=== PATIENT | female | born 1990 | race Caucasian/White ===

== ENCOUNTER → 2017-10-04 | Outpatient (CLI) | payer OTHER ==
[~2017-10-04] MED LIST: IBUP800 PO
== END ==
LOC: LAB SHORT 12:21
DX: J02.9 Acute pharyngitis, unspecified (principal)
CPT/HCPCS: 87070

== ENCOUNTER → 2019-06-30 | Outpatient (CLI) | payer OTHER | END | disposition home or self-care (01) | LOC: LAB 08:45 → LAB SHORT 08:45 | DX: Z34.93 Encounter for supervision of normal pregnancy, unspecified, third trimester (principal) | CPT/HCPCS: 87081; 87653 ==

== ENCOUNTER 2019-07-30 06:00 | Inpatient (IN) | payer OTHER ==
[~2019-07-30] VITALS: Ht 162.6 cm; Wt 66.0 kg
[2019-07-30] MEDS ORDERED: IRON150C PO (06:14)
[2019-07-30] MEDS ORDERED: PRENATAL TABLE1 EAC2 PO (06:14)
[2019-07-30 06:51] LABS: BASOPHILS ABSOLUTE AUTO 0.03 K/mm3 (0.00-0.23); BASOPHILS PERCENT AUTO 0 % (0-2); EOSINOPHILS ABSOLUTE AUTO 0.08 K/mm3 (0.00-0.68); EOSINOPHILS PERCENT AUTO 1 % (0-6); Hematocrit 35.1 % (33.0-51.0); IMMATURE GRAN ABSOLUTE AUTO 0.02 K/mm3 (0.00-0.10); IMMATURE GRAN PERCENT AUTO 0 % (0-1); LYMPHOCYTES ABSOLUTE AUTO 1.86 K/mm3 (0.84-5.20); LYMPHOCYTES PERCENT AUTO 22 % (21-46); MONOCYTES ABSOLUTE AUTO 0.72 K/mm3 (0.16-1.47); MONOCYTES PERCENT AUTO 9 % (4-13); Mean Corpuscular HGB 31.7 pg (26.0-34.0); Mean Corpuscular HGB Conc 34.2 g/dL (31.5-36.5); Mean Corpuscular Volume 93 fL (80-100); Mean Platelet Volume 11.2 fL (9.1-12.4); NEUTROPHILS ABSOLUTE AUTO 5.77 K/mm3 (1.96-9.15); NEUTROPHILS PERCENT AUTO 68 % (41-73); Platelet Count 201 K/mm3 (150-400); RDW Coefficient Variation 12.9 % (11.7-14.2); RDW Standard Deviation 43.5 fL (35.1-46.3); Red Blood Cell Count 3.79 M/mm3 (3.80-5.20); White Blood Cell Count 8.48 K/mm3 (4.00-11.30)
[2019-07-31 06:53] LABS: Hematocrit 30.7 % (33.0-51.0); Hemoglobin 10.3 g/dL (11.5-16.0); Mean Corpuscular HGB 31.9 pg (26.0-34.0); Mean Corpuscular HGB Conc 33.6 g/dL (31.5-36.5); Mean Corpuscular Volume 95 fL (80-100); Mean Platelet Volume 11.2 fL (9.1-12.4); Platelet Count 158 K/mm3 (150-400); RDW Standard Deviation 44.9 fL (35.1-46.3); Red Blood Cell Count 3.23 M/mm3 (3.80-5.20); White Blood Cell Count 10.31 K/mm3 (4.00-11.30)
[2019-07-31] MEDS ORDERED: IBUP800 PO (14:17)
--- NOTE | 2019-07-31 14:22 | NUR ---
DISCHARGE INSTRUCTIONS, WRITTEN AND VERBAL, GIVEN TO PT AND . ANSWERED ALL QUESTIONS AND CONCERNS. WRITTEN PRESCRIPTION HANDED TO PT. ALL PERSONAL BELONGINGS RETURNED. IV DISCONTINUED. FOLLOW UP APPOINTMENT SCHEDULED. PT IS DISCHARGED HOME.
[2019-08-01 08:07] LABS: HBSAG SCREEN Negative (Negative)
[2019-08-01 10:07] LABS: HIV SCREEN 4TH GENERATION WRFX Non Reactive (Non Reactive)
== END 2019-07-31 14:33 | disposition home or self-care (01) | DRG 807 ==
LOC: BC 06:00
PROVIDERS: ADMIT Obstetrics & Gynecology
PROC: 10E0XZZ Delivery of Products of Conception, External Approach (ICD-10-PCS; principal; 2019-07-30)
PROC: 10907ZC Drainage of Amniotic Fluid, Therapeutic from Products of Conception, Via Natural or Artificial Opening (ICD-10-PCS; 2019-07-30)
PROC: 3E033VJ Introduction of Other Hormone into Peripheral Vein, Percutaneous Approach (ICD-10-PCS; 2019-07-30)
PROC: 6A550ZT Pheresis of Cord Blood Stem Cells, Single (ICD-10-PCS; 2019-07-30)
PROC: 0HQ9XZZ Repair Perineum Skin, External Approach (ICD-10-PCS; 2019-07-30)
DX: O48.0 Post-term pregnancy (principal); Z37.0 Single live birth; O70.0 First degree perineal laceration during delivery; Z3A.40 40 weeks gestation of pregnancy
CPT/HCPCS: 36415; 85025; 85027; 86592; 86762; 86850; 86900; 86901; J1885; J2001; J2405; J2590; J3010; J7120

== ENCOUNTER → 2021-05-07 | Outpatient (CLI) | payer BC ==
[~2021-05-07] MED LIST changes: +IRON150C PO; +PRENATAL TABLE1 EAC2 PO
[2021-05-07 17:35] LABS: BASOPHILS ABSOLUTE AUTO 0.02 K/mm3 (0.00-0.23); BASOPHILS PERCENT AUTO 0 % (0-2); EOSINOPHILS ABSOLUTE AUTO 0.04 K/mm3 (0.00-0.68); EOSINOPHILS PERCENT AUTO 1 % (0-6); Hematocrit 32.5 % (33.0-51.0); IMMATURE GRAN ABSOLUTE AUTO 0.02 K/mm3 (0.00-0.10); IMMATURE GRAN PERCENT AUTO 0 % (0-1); LYMPHOCYTES PERCENT AUTO 16 % (21-46); MONOCYTES ABSOLUTE AUTO 0.35 K/mm3 (0.16-1.47); MONOCYTES PERCENT AUTO 5 % (4-13); Mean Corpuscular HGB 31.4 pg (26.0-34.0); Mean Corpuscular HGB Conc 33.8 g/dL (31.5-36.5); Mean Corpuscular Volume 93 fL (80-100); Mean Platelet Volume 10.5 fL (9.1-12.4); NEUTROPHILS ABSOLUTE AUTO 5.19 K/mm3 (1.96-9.15); NEUTROPHILS PERCENT AUTO 77 % (41-73); Platelet Count 213 K/mm3 (150-400); RDW Standard Deviation 44.1 fL (35.1-46.3); White Blood Cell Count 6.72 K/mm3 (4.00-11.30)
== END | disposition home or self-care (01) ==
LOC: LAB SHORT 14:19 → LAB 14:19
PROVIDERS: Obstetrics & Gynecology
DX: O09.93 Supervision of high risk pregnancy, unspecified, third trimester (principal)
CPT/HCPCS: 36415; 82950; 85025

== ENCOUNTER → 2021-07-10 | Outpatient (CLI) | payer OTHER | END | disposition home or self-care (01) | LOC: LAB 16:00 → LAB SHORT 16:00 | DX: O09.93 Supervision of high risk pregnancy, unspecified, third trimester (principal) | CPT/HCPCS: 87081; 87150 ==

== ENCOUNTER 2021-07-26 10:35 | Inpatient (IN) | payer OTHER ==
[~2021-07-26] VITALS: Ht 162.6 cm; Wt 61.4 kg
[2021-07-26 11:38] LABS: BASOPHILS ABSOLUTE AUTO 0.01 K/mm3 (0.00-0.23); BASOPHILS PERCENT AUTO 0 % (0-2); EOSINOPHILS ABSOLUTE AUTO 0.05 K/mm3 (0.00-0.68); EOSINOPHILS PERCENT AUTO 1 % (0-6); Hematocrit 33.8 % (33.0-51.0); Hemoglobin 11.7 g/dL (11.5-16.0); IMMATURE GRAN ABSOLUTE AUTO 0.03 K/mm3 (0.00-0.10); IMMATURE GRAN PERCENT AUTO 1 % (0-1); LYMPHOCYTES ABSOLUTE AUTO 1.07 K/mm3 (0.84-5.20); LYMPHOCYTES PERCENT AUTO 17 % (21-46); MONOCYTES ABSOLUTE AUTO 0.58 K/mm3 (0.16-1.47); MONOCYTES PERCENT AUTO 9 % (4-13); Mean Corpuscular HGB 31.7 pg (26.0-34.0); Mean Corpuscular HGB Conc 34.6 g/dL (31.5-36.5); Mean Corpuscular Volume 92 fL (80-100); Mean Platelet Volume 12.1 fL (9.1-12.4); NEUTROPHILS ABSOLUTE AUTO 4.62 K/mm3 (1.96-9.15); NEUTROPHILS PERCENT AUTO 73 % (41-73); Platelet Count 183 K/mm3 (150-400); RDW Coefficient Variation 12.7 % (11.7-14.2); RDW Standard Deviation 41.9 fL (35.1-46.3); Red Blood Cell Count 3.69 M/mm3 (3.80-5.20); White Blood Cell Count 6.36 K/mm3 (4.00-11.30)
[2021-07-26 12:38] LABS: Influenza A, PCR NEGATIVE (NEGATIVE); Influenza B, PCR NEGATIVE (NEGATIVE); Resp Syncytial Virus, PCR NEGATIVE (NEGATIVE); SARS-Cov-2 (COVID-19) PCR, MMC NEGATIVE (NEGATIVE)
--- NOTE | 2021-07-27 10:13 | NUR ---
Upon receiving a referral for spiritual care, I visit patient. Patient and spouse, Star tell me about the events that led to the delivery and express the beauty, struggle and humor of the process. They share about their [employer] dany and agree to a blessing being said for the baby, which I gladly provide. I will continue to remain available to pt and family.
[2021-07-28] MEDS ORDERED: IBUP800 PO (07:18)
--- NOTE | 2021-07-28 12:12 | NUR ---
DISCHARGE DISCHARGE HOME STABLE. VERBALIZES UNDERSTANDING OF DC INSTRUCTIONS AND FOLLOW UP APPOINTMENTS. NO QUESTIONS OR CONCERNS. EXPERIENCED PARETNS AND CARING FOR SELF AND BABY INDEPENDANTLY. LOCHIA SCANT. VSS
== END 2021-07-28 12:22 | disposition home or self-care (01) | DRG 807 ==
LOC: OBS 10:35 → BC 10:37 → OBS 11:00 → BC 11:00
PROVIDERS: ADMIT Obstetrics & Gynecology
PROC: 10E0XZZ Delivery of Products of Conception, External Approach (ICD-10-PCS; principal; 2021-07-27)
PROC: 3E033VJ Introduction of Other Hormone into Peripheral Vein, Percutaneous Approach (ICD-10-PCS; 2021-07-27)
PROC: 10907ZC Drainage of Amniotic Fluid, Therapeutic from Products of Conception, Via Natural or Artificial Opening (ICD-10-PCS; 2021-07-27)
PROC: 3E0S3BZ Introduction of Anesthetic Agent into Epidural Space, Percutaneous Approach (ICD-10-PCS; 2021-07-27)
PROC: 00HU33Z Insertion of Infusion Device into Spinal Canal, Percutaneous Approach (ICD-10-PCS; 2021-07-27)
DX: O69.81X0 Labor and delivery complicated by cord around neck, without compression, not applicable or unspecified (principal); Z37.0 Single live birth; Z3A.39 39 weeks gestation of pregnancy; Z86.16 Personal history of COVID-19; Z88.8 Allergy status to other drugs, medicaments and biological substances
CPT/HCPCS: 0241U; 36415; 51702; 85025; 86850; 86900; 86901; A9270; J1885; J2001; J3010; J7120

== ENCOUNTER → 2022-06-07 | Outpatient (CLI) | payer OTHER ==
[2022-06-07 20:48] LABS: Appearance, Urine Clear (Clear); Bilirubin, Urine Neg (Neg); Blood, Urine Neg (Neg); Glucose Qualitative, Urine Neg (Neg); Ketones, Urine Neg (Neg); Leukocyte Esterase, Urine Neg (Neg); Nitrite, Urine Neg (Neg); Protein, Urine Neg (Neg); Urobilinogen, Urine NORM (Normal)
[2022-06-07 20:52] LABS: Color, Urine Pale Yellow (P-Yellow)
[2022-06-08 12:57] LABS: Candida species (DNA Probe) Negative (NEGATIVE); G. vaginalis (DNA Probe) Negative (NEGATIVE); T. vaginalis (DNA Probe) Negative (NEGATIVE)
== END | disposition home or self-care (01) ==
LOC: LAB SHORT 16:59
PROVIDERS: Advanced Practice Midwife
DX: N76.0 Acute vaginitis (principal); R31.9 Hematuria, unspecified
CPT/HCPCS: 81003; 87480; 87510; 87660

== ENCOUNTER → 2022-09-18 | Outpatient (CLI) | payer OTHER ==
[2022-09-18 16:52] LABS: Source, Urine Clean Catch
[2022-09-18 19:00] LABS: Appearance, Urine Clear (Clear); Bilirubin, Urine Neg (Neg); Blood, Urine 5+ (Neg); Color, Urine Yellow (P-Yellow); Glucose Qualitative, Urine Neg (Neg); Ketones, Urine 1+ (Neg); Leukocyte Esterase, Urine Neg (Neg); Nitrite, Urine Neg (Neg); Protein, Urine 2+ (Neg); Urobilinogen, Urine NORM (Normal)
[2022-09-18 19:11] LABS: Squamous Epithelial Cells Mod /hpf (Few)
[2022-09-18 19:13] LABS: Bacteria Many /hpf; Calcium Oxalate Crystals Few /hpf
== END | disposition home or self-care (01) ==
LOC: LAB 16:50 → LAB SHORT 16:50
PROVIDERS: Advanced Practice Midwife
DX: R82.90 Unspecified abnormal findings in urine (principal)
CPT/HCPCS: 81001

== ENCOUNTER → 2023-03-18 | Outpatient (CLI) | payer OTHER | LOC: LAB SHORT 09:39 → LAB 09:39 | DX: Z34.83 Encounter for supervision of other normal pregnancy, third trimester (principal) | CPT/HCPCS: 87081; 87150 ==

== ENCOUNTER 2023-04-03 04:06 | Inpatient (IN) | payer OTHER ==
[~2023-04-03] VITALS: Ht 162.6 cm; Wt 62.5 kg
[2023-04-03] VITALS (23 sets, daily range): BP systolic 114–163; BP diastolic 63–102
[2023-04-03 04:59] LABS: BASOPHILS ABSOLUTE AUTO 0.02 K/mm3 (0.00-0.23); BASOPHILS PERCENT AUTO 0 % (0-2); EOSINOPHILS ABSOLUTE AUTO 0.04 K/mm3 (0.00-0.68); EOSINOPHILS PERCENT AUTO 1 % (0-6); Hematocrit 35.7 % (33.0-51.0); Hemoglobin 12.4 g/dL (11.5-16.0); IMMATURE GRAN ABSOLUTE AUTO 0.02 K/mm3 (0.00-0.10); IMMATURE GRAN PERCENT AUTO 0 % (0-1); LYMPHOCYTES ABSOLUTE AUTO 1.65 K/mm3 (0.84-5.20); LYMPHOCYTES PERCENT AUTO 19 % (21-46); MONOCYTES ABSOLUTE AUTO 0.62 K/mm3 (0.16-1.47); MONOCYTES PERCENT AUTO 7 % (4-13); Mean Corpuscular HGB 31.6 pg (26.0-34.0); Mean Corpuscular HGB Conc 34.7 g/dL (31.5-36.5); Mean Corpuscular Volume 91 fL (80-100); Mean Platelet Volume 12.2 fL (9.1-12.4); NEUTROPHILS ABSOLUTE AUTO 6.22 K/mm3 (1.96-9.15); NEUTROPHILS PERCENT AUTO 73 % (41-73); Platelet Count 195 K/mm3 (150-400); RDW Coefficient Variation 12.9 % (11.7-14.2); RDW Standard Deviation 42.3 fL (35.1-46.3); Red Blood Cell Count 3.92 M/mm3 (3.80-5.20); White Blood Cell Count 8.57 K/mm3 (4.00-11.30)
[2023-04-03] MEDS ORDERED: DOCU100 PO (10:50)
[2023-04-03] MEDS ORDERED: IBUP800 PO (10:50)
--- NOTE | 2023-04-03 21:31 | NUR ---
All needs are met at this time.
[2023-04-04 04:24] VITALS: BP 107/71
--- NOTE | 2023-04-04 04:38 | NUR ---
Pt resting, no needs at this time.
[2023-04-04 10:28] VITALS: BP 128/84
--- NOTE | 2023-04-04 10:49 | NUR ---
DISCHARGE DISCHARGE HOME STABLE WITH . VSS. AFEBRILE. LOCHIA SCANT. CARING FOR SELF AND BABY INDEPENDANTLY. VERBALIZES UNDERSTANDING OF DC INSTRUCTIONS AND FOLLOW UP APPOINTMENTS. NO QUESTIONS OR CONCERNS.
== END 2023-04-04 10:45 | disposition home or self-care (01) | DRG 807 ==
LOC: OBS 04:06 → BC 04:13 → OBS 04:36 → BC 04:37
PROVIDERS: ADMIT Obstetrics & Gynecology
PROC: 10E0XZZ Delivery of Products of Conception, External Approach (ICD-10-PCS; principal; 2023-04-03)
DX: O48.0 Post-term pregnancy (principal); Z37.0 Single live birth; Z3A.40 40 weeks gestation of pregnancy; Z88.5 Allergy status to narcotic agent; Z88.8 Allergy status to other drugs, medicaments and biological substances
CPT/HCPCS: 51702; 59025; 85025; 86850; 86900; 86901; A9270; J1885; J3010; J7120

== ENCOUNTER → 2023-07-06 | Outpatient (CLI) | payer OTHER ==
[~2023-07-06] MED LIST changes: +DOCU100 PO
== END ==
LOC: LAB SHORT 16:33 → LAB 16:33
DX: R30.0 Dysuria (principal)
CPT/HCPCS: 87086

== ENCOUNTER → 2025-04-28 | Outpatient (CLI) | payer OTHER | LOC: LAB SHORT 15:45 → LAB 15:45 | PROVIDERS: Obstetrics & Gynecology | DX: Z01.419 Encounter for gynecological examination (general) (routine) without abnormal findings (principal) | CPT/HCPCS: 87624; G0145 ==